=== PATIENT | male | born 1945 | race Caucasian/White ===

== ENCOUNTER 2016-10-04 14:48 | Day surgery (SDC) | payer MEDICARE, OTHER ==
[2016-10-01 18:02] LABS: HEMATOCRIT 41.1 % (40.0-51.0); HEMOGLOBIN 14.3 g/dL (13.6-17.8)
--- NOTE | ~2016-10-04 | OP ---
Record Of Operation [facility] [address] [place]. [address] NAME: SCOUT PEÑA : 45 STATUS : REG [facility]#: [id number] AGE: 71 ADM/REG DATE : 10/04/16 MR#: [id number] REPORT SERV DATE: 10/04/16 DICTATED BY: JACQUELINE ALVA DATE: 10/04/16 REPORT STATUS : Draft TRANSCRIBED BY: MODL DATE: 10/04/16 DATE OF PROCEDURE: 10/04/2016 PREPROCEDURE DIAGNOSIS: A 9 mm distal left ureteral calculus. POSTPROCEDURE DIAGNOSIS: A 9 mm distal left ureteral calculus. PROCEDURE: Left ESWL. SURGEON: Jacqueline Alva M.D. FIRST ASSISTANCE: Kaleigh Varela. ANESTHESIA: MAC. HISTORY: Mr. Peña is a 71-year-old white gentleman, with a large distal ureteral stone. We discussed treatment options and he requested left ESWL. Risks specific to this procedure include, but not limited to bleeding, infection, incomplete stone fragmentation, Steinstrasse, hematoma, injury to neighboring organs, need for further urologic procedures, anesthesia complications, and so forth. I answered all his questions I believe to his satisfaction. Subsequently, he requested the procedure and provided his informed written consent. PROCEDURE IN DETAIL: On 10/04/2016, the patient was brought to the lithotripsy suite. He was placed supine on the Movable lithotripter. Biplanar fluoroscopy was used to localize the left ureteral calculus. A time-out was called. The proper patient and procedure were confirmed. Levaquin was administered as a perioperative antibiotic. At this time, the Anesthesia Team established monitored anesthesia care. Subsequently, we delivered a total of 4000 shocks at a maximum power of 9 kV and rate of 120 shocks per minute to the stone. Fluoroscopy time was 40 seconds. The patient tolerated the procedure well without immediate complications, he was transferred to the recovery area in stable condition. RAC/MODL Jacqueline Alva M.D. / [id number] CC: Jacqueline Alva M.D. Julia Person M.D.
[~2016-10-04 14:48] MED LIST: AMARYL2 PO; JANUMET1 TA1 PO; LEVOTHYROXIN50 MCG PO; MAXZIDE PO; PCET PO; T PO; VASOTEC20 MG PO; ZOCOR40 PO
[2017-02-10] MEDS ORDERED: JANUMET XR 50-1 EAC1 PO (17:48)
[2017-02-10] MEDS ORDERED: ALEVE220 MG PO (17:51)
== END 2016-10-04 19:55 | disposition home or self-care (01) ==
LOC: SDC 14:48
PROVIDERS: Urology
PROC: 0TF7XZZ Fragmentation in Left Ureter, External Approach (ICD-10-PCS; principal; 2016-10-04 17:00)
DX: N20.2 Calculus of kidney with calculus of ureter (principal); N28.89 Other specified disorders of kidney and ureter; E11.9 Type 2 diabetes mellitus without complications; I10 Essential (primary) hypertension; E03.9 Hypothyroidism, unspecified; E78.5 Hyperlipidemia, unspecified; E78.00 Pure hypercholesterolemia, unspecified; R31.29 Other microscopic hematuria; Z79.899 Other long term (current) drug therapy; Z88.0 Allergy status to penicillin; Z86.010 Personal history of colon polyps; Z90.49 Acquired absence of other specified parts of digestive tract
CPT/HCPCS: 50590; 74000; 82962; 85014; 85018; 93005; J2250; J3010